=== PATIENT | female | born 1960 | race African-American/Black ===

== ENCOUNTER 2016-05-29 19:28 | Emergency (ER) | payer OTHER, MEDICARE | END 2016-05-29 20:57 | disposition home or self-care (01) | LOC: ER 19:28 | DX: S19.9XXA Unspecified injury of neck, initial encounter (principal); S39.92XA Unspecified injury of lower back, initial encounter; S29.9XXA Unspecified injury of thorax, initial encounter; S49.91XA Unspecified injury of right shoulder and upper arm, initial encounter; I10 Essential (primary) hypertension; E11.9 Type 2 diabetes mellitus without complications; Z86.73 Personal history of transient ischemic attack (TIA), and cerebral infarction without residual deficits; Z88.5 Allergy status to narcotic agent; V29.00XA Motorcycle driver injured in collision with unspecified motor vehicles in nontraffic accident, initial encounter | CPT/HCPCS: 72040; 72100; 73030-RT; 99284 ==